=== PATIENT | female | born 1990 | race Two or more races ===

== ENCOUNTER 2017-09-05 06:09 | Inpatient (IN) | payer MEDICAID ==
[~2017-09-05] VITALS: Ht 172.7 cm; Wt 108.0 kg
[2017-09-05] VITALS (65 sets, daily range): BP systolic 73–132; BP diastolic 17–84; PULSE 71–120; RESP 18; TEMP 98.1–98.7
--- NOTE | 2017-09-05 08:08 | HHI.HP ---
HPI Chief Complaint post dates labor induction Date Seen: Sep 05, 2017 Time Seen: 07:45 Travel History International Travel<30 Days: No Contact w/Intl Traveler<30Days: No Known Affected Area: No History of Present Illness HPI 27 yo with reyna IUP at 40w2d by LMP c/w 1st trimester ultrasound admit for term labor induction, favorable, seen in office and scheduled last week by Dr. Diego. Pt c/o mild pelvic cramps today, nothing regular, no LOF or VB. Good FM. Pain 1/10, pressure in low pelvis. Weeks Gestation: 40 Para: 2 : 3 History Past Medical History Medical History: Denies Significant Hx Obstetric History Obstetric History 2 FT SVDs Past Surgical History Narrative Surgical denies Family History Family History: Negative Social History Alcohol Use: No Tobacco Use: No Substance Abuse: No Allergies-Medications (Allergen,Severity, Reaction): Coded Allergies: No Known Allergies (Unverified , 09/05/17) Home Meds No Active Prescriptions or Reported Meds Review of Systems General / Constitutional: Weight Gain, No: Fever, Chills, Other Eyes: No: Diploplia, Blurred Vision, Visual changes, Pain, Photophobia HENT: No: Headaches, Vertigo, Lightheadedness Cardiovascular: No: Irregular Rhythm, Chest Pain or Discomfort, Palpitations, Tachycardia, Syncope, Varicosities, Edema, Cyanosis Respiratory: No: Cough, Short of Breath, Other Gastrointestinal: No: Nausea, Vomiting, Diarrhea Genitourinary: Pelvic Pain (pressure), No: Decreased Urinary Output, Oliguria Musculoskeletal: No: Limited ROM, Weakness, Cramping, Edema, Pain Skin: No Rash, No Itching, No Dryness, No Lumps, No Change in Pigmentation, No Change in Nails, No Alopecia, No Lesions Neurologic: No: Weakness, Dizziness, Syncope, Focal Abnormalities, Coordination Problem, Headache, Slurred Speech, Seizures Psychiatric: No: Depression, Suicidal Ideations, Homicidal Ideation Endocrine: No: Heat Intolerance, Cold Intolerance, Polydipsia, Polyuria, Other Physical Exam Narrative GENERAL: Well-nourished, well-developed patient. SKIN: Warm and dry. HEAD: Normocephalic and atraumatic. EYES: No scleral icterus. No injection or drainage. ENT: No nasal drainage noted. Mucous membranes pink. Airway patent. NECK: Supple, trachea midline. No JVD. CARDIOVASCULAR: Regular rate and rhythm without murmurs, gallops, or rubs. RESPIRATORY: Breath sounds equal bilaterally. No accessory muscle use. BREASTS: Bilateral exam showed no masses , no retractions, no nipple discharge. ABDOMEN/GI: Abdomen soft, non-tender, bowel sounds present, no rebound, no guarding Gravid to [40] weeks size Fundal Height: [41] GENITOURINARY: External Genitalia: intact and normal in appearance BUS glands: [wnl] Cervix: [posterior] Dilatation: [2] Effacement: [th] Station: [3] Presentation: [vtx] Membranes: [intact] Uterine Contractions: [irreg, rare] FHT's: Category: [I] Baseline: [150s] Reactive: [y] Variability: [y] Decels: [n] EXTREMITIES: No cyanosis or edema. BACK: Nontender without obvious deformity. No CVA tenderness. NEUROLOGICAL: Awake and alert. Motor and sensory grossly within normal limits. Five out of 5 muscle strength in all muscle groups. Normal speech. Caprini VTE Risk Assessment Caprini VTE Risk Assessment: No/Low Risk (score <= 1) VTE Pharm Contraindication: High risk for bleeding Caprini Risk Assessment Model Point Value = 1 Point Value = 2 Point Value = 3 Point Value = 5 Age 41-60 Minor surgery BMI > 25 kg/m2 Swollen legs Varicose veins or History of unexplained or recurrent spontaneous Oral contraceptives or hormone replacement Sepsis (< 1 month) Serious lung disease, including pneumonia (< 1 month) Abnormal pulmonary function Acute myocardial infarction Congestive heart failure (< 1 month) History of inflammatory bowel disease Medical patient at bed rest Age 61-74 Arthroscopic surgery Major open surgery (> 45 min) Laparoscopic surgery (> 45 min) Malignancy Confined to bed (> 72 hours) Immobilizing plaster cast Central venous access Age >= 75 History of VTE Family history of VTE Factor V Leiden Prothrombin [id number] Lupus anticoagulant Anticardiolipin antibodies Elevated serum homocysteine Heparin-induced thrombocytopenia Other congenital or acquired thrombophilia Stroke (< 1 month) Elective arthroplasty Hip, pelvis, or leg fracture Acute spinal cord injury (< 1 month) Prophylaxis Regimen Total Risk Factor Score Risk Level Prophylaxis Regimen 0-1 Low Early ambulation 2 Moderate Order ONE of the following: *Sequential Compression Device (SCD) *Heparin 5000 units SQ BID 3-4 Higher Order ONE of the following medications: *Heparin 5000 units SQ TID *Enoxaparin/Lovenox 40 mg SQ daily (WT < 150 kg, CrCl > 30 mL/min) *Enoxaparin/Lovenox 30 mg SQ daily (WT < 150 kg, CrCl > 10-29 mL/min) *Enoxaparin/Lovenox 30 mg SQ BID (WT < 150 kg, CrCl > 30 mL/min) AND/OR *Sequential Compression Device (SCD) 5 or more Highest Order ONE of the following medications: *Heparin 5000 units SQ TID (Preferred with Epidurals) *Enoxaparin/Lovenox 40 mg SQ daily (WT < 150 kg, CrCl > 30 mL/min) *Enoxaparin/Lovenox 30 mg SQ daily (WT < 150 kg, CrCl > 10-29 mL/min) *Enoxaparin/Lovenox 30 mg SQ BID (WT < 150 kg, CrCl > 30 mL/min) AND *Sequential Compression Device (SCD) Data Data Orders Orders Admit To Inpatient (09/05/17 ) Code Status (09/05/17 08:00) Vital Signs (Adult) .Per protocol (09/05/17 08:00) Activity Oob Ad Alexa (09/05/17 08:00) Heart (09/05/17 08:00) Amnioinfusion (09/05/17 08:00) Urinary Catheter Management .ONCE (09/05/17 08:00) Lactated Ringer's 1000 Ml Inj (Lr 1000 M (09/05/17 08:00) Lactated Ringer's 1000 Ml Inj (Lr 1000 M (09/05/17 08:00) Sodium Chlorid 0.9% 500 Ml Inj (Ns 500 M (09/05/17 08:00) Sodium Chlor 0.9% 1000 Ml Inj (Ns 1000 M (09/05/17 08:20) Lidocaine 1% Inj (50 Ml) (Xylocaine 1% I (09/05/17 08:00) Citric Acid-Sodium Citrate Liq (Bicitra (09/05/17 08:00) Ondansetron Inj (Zofran Inj) (09/05/17 08:00) Fentanyl Inj (Fentanyl Inj) (09/05/17 08:00) Fentanyl Inj (Fentanyl Inj) (09/05/17 08:00) Penicillin G Potassium Inj (Pfizerpen-G (09/05/17 08:00) Penicillin G Potassium Inj (Pfizerpen-G (09/05/17 12:00) Complete Blood Count With Diff (09/05/17 08:00) Hold Clot (09/05/17 08:00) Abo/Rh Blood Type (09/05/17 08:00) Assessment/Plan Problem List: (1) Post term over 40 weeks ICD Codes: O48.0 - Post-term Status: Acute Assessment and Plan 27 yo with reyna IUP at 40w2d admit for post term induction 1) IOL: due to GBS+ multiparous status will start PCN ppx then start pitocin after 2h of PCN therapy; orders placed, consents signed 2) GBS + for PCN ppx 3) status: vtx, Cat I tracing Discharge Planning 2-3d PP Nicki Hussein MD Sep 05, 2017 08:08
[2017-09-05 08:26] LABS: AUTOMATED NEUTROPHIL # 7.3 TH/MM3 (1.8-7.7); BASOPHIL % 0.4 % (0.0-2.0); EOSINOPHIL # 0.1 TH/MM3 (0-0.4); EOSINOPHIL % 1.3 % (0.0-4.0); LYMPH % 21.3 % (9.0-44.0); LYMPHOCYTE # 2.2 TH/MM3 (1.0-4.8); MEAN CELL VOLUME 88.3 FL (80.0-100.0); MEAN CORPUSCULAR HEMOGLOBIN 29.3 PG (27.0-34.0); MEAN CORPUSCULAR HGB CONC 33.2 % (32.0-36.0); MONO % 5.6 % (0.0-8.0); MONOCYTE # 0.6 TH/MM3 (0-0.9); NEUT % 71.4 % (16.0-70.0); PLATELET COUNT 204 TH/MM3 (150-450); RED BLOOD COUNT 3.73 MIL/MM3 (4.00-5.30); RED CELL DISTRIBUTION WIDTH 14.4 % (11.6-17.2); WHITE BLOOD COUNT 10.3 TH/MM3 (4.0-11.0)
[2017-09-05] MEDS ORDERED: LIDOCAINE HCL 1% 50 ML VIAL I-DERMAL PRN (08:30)
[2017-09-05] MEDS ORDERED: OXYTOCIN 30 UNITS-500ML PREMIX 500 ML IV ONE (08:30)
[2017-09-05] MEDS ORDERED: LACTATED RINGER'S 1000 ML INJ 1,000 ML IV PRN (08:30)
[2017-09-05] MEDS ORDERED: LIDOCAINE HCL 1% 50 ML VIAL INFIL PRN (08:30)
[2017-09-05] MEDS ORDERED: PENICILLIN G POTASSIUM INJ 5,000,000 UNITS in SODIUM CHLORIDE 0.9% INJ 100 ML IV ONE (08:30)
[2017-09-05] MEDS ORDERED: SODIUM CHLORID 0.9% 500 ML INJ 500 ML IV PRN (08:30)
[2017-09-05] MEDS ORDERED: CITRIC ACID-SODIUM CITRATE LIQ 30 ML UDC PO SCH (08:30)
[2017-09-05] MEDS ORDERED: MINERAL OIL 10 ML VIAL TOPICAL PRN (08:30)
[2017-09-05] MEDS ORDERED: ONDANSETRON HCL 4 MG/2 ML VIAL IV PUSH PRN (08:30)
[2017-09-05 08:31] LABS: BILIRUBIN, URINE NEG (NEG); BLOOD, URINE NEG (NEG); GLUCOSE,URINE NEG (NEG); KETONE, URINE NEG (NEG); MUCUS URINE FEW /lpf (OCC); NITRITE,URINE NEG (NEG); PH, URINE 6.5 (5.0-8.5); SQUAMOUS EPITHELIAL CELL URINE 16 /hpf (0-5); TRANSITIONAL EPI CELLS, URINE <1 /hpf; URINE COLOR YELLOW (YELLW/STRAW); URINE LEUKOCYTE ESTERASE LARGE (NEG)
[2017-09-05] MEDS: LACTATED RINGER'S 1000 ML INJ 1,000 ML IV SCH ×3 (08:36→20:05)
[2017-09-05] MEDS ORDERED: SODIUM CHLOR 0.9% 1000 ML INJ 1,000 ML IV PRN (08:50)
[2017-09-05] MEDS ORDERED: OXYTOCIN 30 UNITS-500ML PREMIX 500 ML IV SCH ×2 (10:30→21:30)
[2017-09-05] MEDS: PENICILLIN G POTASSIUM INJ 2,500,000 UNITS in SODIUM CHLORIDE 0.9% INJ 100 ML IV SCH ×3 (12:24→20:04)
[2017-09-05] MEDS ORDERED: ePHEDrine/NS 25 MG/5 ML SYRINGE ONE (13:21)
[2017-09-05] MEDS ORDERED: fentaNYL 2MCG-BUPIV 0.125% INJ 100 ML ONE (13:21)
[2017-09-05] MEDS ORDERED: DO NOT ADMINISTER ANTICOAGULANTS PRN ×2 (15:00→19:00)
[2017-09-05] MEDS ORDERED: fentaNYL 2MCG-BUPIV 0.125% 100 ML EPIDURAL SCH ×2 (15:00→19:00)
[2017-09-05] MEDS ORDERED: NO SYSTEM NARCOTICS PRN ×2 (15:00→19:00)
[2017-09-05] MEDS ORDERED: ePHEDrine/NS 25 MG/5 ML SYRINGE IV PUSH PRN ×2 (15:15→19:00)
[2017-09-05] MEDS ORDERED: MEASLES, MUMPS, RUBELLA VACCINE 0.5 ML VIAL SQ ONE (16:00)
[2017-09-05] MEDS ORDERED: DIPHTH/TETANUS/ACEL PERTUSSIS (BOOSTER) 0.5 ML VIAL/PFS IM ONE (16:00)
--- NOTE | 2017-09-05 17:47 | PD.LABORPN ---
Subjective Subjective feeling comfortable with epidural in place; no LOF; contractions not really being felt, mild, 2/10 discomfort q3-5 min Objective Vital Signs Vital Signs Date Time Temp Pulse Resp B/P (MAP) Pulse Ox O2 Delivery O2 Flow Rate FiO2 09/05/17 17:30 18 09/05/17 17:16 81 103/62 (76) 09/05/17 17:10 18 09/05/17 17:01 109 113/63 (80) 09/05/17 17:00 18 09/05/17 16:46 120 113/64 (80) 09/05/17 16:45 18 09/05/17 16:31 86 104/61 (75) 09/05/17 16:21 18 09/05/17 16:15 82 18 104/79 (87) 09/05/17 16:00 18 09/05/17 16:00 78 112/64 (80) 09/05/17 15:45 73 110/59 (76) 09/05/17 15:45 18 09/05/17 15:30 71 113/67 (82) 09/05/17 15:26 18 09/05/17 15:15 81 94/40 (58) 09/05/17 15:15 18 09/05/17 15:00 87 18 86/38 (54) 09/05/17 14:45 101 78/53 (61) 09/05/17 14:25 93 09/05/17 14:20 80 09/05/17 14:15 80 09/05/17 14:15 99 111/61 (78) 09/05/17 14:10 100 09/05/17 14:05 81 09/05/17 14:01 88 101/39 (59) 09/05/17 14:00 102 09/05/17 13:56 98.5 09/05/17 13:56 81 111/58 (75) 09/05/17 13:55 93 09/05/17 13:51 87 119/77 (91) 09/05/17 13:50 93 09/05/17 13:46 85 18 125/79 (94) 09/05/17 13:45 76 18 09/05/17 13:40 88 124/84 (97) 09/05/17 13:40 87 09/05/17 13:35 83 09/05/17 12:22 96 18 108/63 (78) 09/05/17 11:46 98.1 18 09/05/17 11:46 84 132/69 (90) 09/05/17 10:40 18 09/05/17 10:39 91 105/55 (72) Objective Pelvic Exam: Cervix: [mid] Dilatation: [4-5] Effacement: [50] Station: [-2] Presentation: [vtx] Membranes: AROM'd clear this check; copious fluid Uterine Contractions: [IUPC placed, difficult to monitor; q3-5 min] FHT's: Category: [I] Baseline: [140s] Reactive: [y] Variability: [y] Decels: [rare variables with good recovery and good BTBV] Weeks Gestation: 40 Artificial rupture of membrane: Yes Assessment/Plan Problem List: (1) Post term over 40 weeks ICD Codes: O48.0 - Post-term Status: Acute Assessment and Plan 27 yo with IUP at 40w2d admit for post term labor induction 1) IOL: on pitocin, AROM'd clear this check, slow progression but proven pelvis with x 2; anticipate 2) GBS + on PCN since admission 3) status: vertex, male, Cat I tracing Nicki Hussein MD Sep 05, 2017 17:47
--- NOTE | 2017-09-05 21:27 | PD.OB.DELI ---
Weeks gestation: 40 Pt started active labor?: Yes Artificial rupture of membrane: Yes Anesthesia: Epidural Episiotomy: None Vaginal Delivery: Normal Presentation: Occiput anterior Nuchal Cord: x1 (tight nuchal, clamped & cut at perineum) Delayed cord clamping (45 sec): No Infant: Male Delivery date: Sep 05, 2017 Delivery time: 21:16 One Minute : 8 Five Minute : 9 Weight: pending Placenta: Spontaneous delivery, Intact, 3 vessel cord Laceration: No lacerations Estimated blood loss: 100 mL Additional Information healthy male infant delivered over intact perineum Nicki Hussein MD Sep 05, 2017 21:27
[2017-09-05] MEDS ORDERED: DOCUSATE SODIUM 50 MG/SENNA 8.6 MG TAB PO PRN (21:30)
[2017-09-05] MEDS ORDERED: ONDANSETRON ODT 4 MG TAB PO PRN (21:30)
[2017-09-05] MEDS ORDERED: WITCH HAZEL 50%/GLYCERIN 12.5% 40 PAD JAR TOPICAL PRN (21:30)
[2017-09-05] MEDS ORDERED: ACETAMINOPHEN 325 MG TAB PO PRN (21:30)
[2017-09-05] MEDS ORDERED: BENZOCAINE 20% TOPICAL SPRAY 60 ML CAN TOPICAL PRN (21:30)
[2017-09-05] MEDS: SODIUM CHLORIDE 0.9% FLUSH 10 ML FLUSH IV FLUSH SCH (21:30)
[2017-09-05] MEDS ORDERED: SODIUM CHLORIDE 0.9% FLUSH 10 ML FLUSH IV FLUSH PRN (21:30)
[2017-09-05] MEDS ORDERED: ZOLPIDEM TARTRATE 5 MG TAB PO PRN (21:30)
[2017-09-05] MEDS ORDERED: ALUMINUM/MAGNESIUM/SIMETH 30 ML CUP PO PRN (21:30)
[2017-09-06 00:30] VITALS: BP 119/71; PULSE 91; RESP 20; TEMP 99.6
[2017-09-06] MEDS: IBUPROFEN 800 MG TAB PO PRN ×2 (05:39→16:13)
[2017-09-06 08:00] VITALS: BP 104/68; PULSE 76; RESP 20; TEMP 97.9
--- NOTE | 2017-09-06 09:33 | HHI.OB ---
Subjective Post Day: 1 Remarks PPD#1; doing well, transitioning Objective Vitals/I&O Vital Signs Date Time Temp Pulse Resp B/P (MAP) Pulse Ox O2 Delivery O2 Flow Rate FiO2 09/06/17 08:00 97.9 76 20 104/68 (80) 09/06/17 00:30 99.6 91 20 119/71 (87) 09/05/17 23:03 18 09/05/17 23:00 74 122/60 (80) 09/05/17 22:45 82 108/61 (77) 09/05/17 22:40 18 09/05/17 22:30 89 107/70 (82) 09/05/17 22:21 18 09/05/17 22:20 75 108/69 (82) 09/05/17 22:17 84 73/17 (35) 09/05/17 22:01 18 09/05/17 22:01 81 122/69 (86) 09/05/17 21:50 98.7 18 09/05/17 21:45 88 122/69 (86) 09/05/17 21:40 18 09/05/17 21:30 87 111/55 (73) 09/05/17 21:25 76 18 106/77 (87) 09/05/17 21:00 83 119/64 (82) 09/05/17 20:45 98.5 18 09/05/17 20:31 84 104/54 (71) 09/05/17 20:05 18 09/05/17 20:00 87 102/57 (72) 09/05/17 19:31 92 112/56 (74) 09/05/17 19:15 98.5 18 09/05/17 19:01 84 107/71 (83) 09/05/17 18:45 18 09/05/17 18:30 81 107/64 (78) 09/05/17 18:20 18 09/05/17 18:15 79 102/56 (71) 09/05/17 18:15 18 09/05/17 18:00 85 98/48 (65) 09/05/17 17:58 18 09/05/17 17:46 107 98/72 (81) 09/05/17 17:42 18 09/05/17 17:30 85 113/61 (78) 09/05/17 17:30 18 09/05/17 17:16 81 103/62 (76) 09/05/17 17:10 18 09/05/17 17:01 109 113/63 (80) 09/05/17 17:00 18 09/05/17 16:46 120 113/64 (80) 09/05/17 16:45 18 09/05/17 16:31 86 104/61 (75) 09/05/17 16:21 18 09/05/17 16:15 82 18 104/79 (87) 09/05/17 16:00 18 09/05/17 16:00 78 112/64 (80) 09/05/17 15:45 73 110/59 (76) 09/05/17 15:45 18 09/05/17 15:30 71 113/67 (82) 09/05/17 15:26 18 09/05/17 15:15 81 94/40 (58) 09/05/17 15:15 18 09/05/17 15:00 87 18 86/38 (54) 09/05/17 14:45 101 78/53 (61) 09/05/17 14:25 93 09/05/17 14:20 80 09/05/17 14:15 80 09/05/17 14:15 99 111/61 (78) 09/05/17 14:10 100 09/05/17 14:05 81 09/05/17 14:01 88 101/39 (59) 09/05/17 14:00 102 09/05/17 13:56 98.5 09/05/17 13:56 81 111/58 (75) 09/05/17 13:55 93 18 13:51 87 119/77 (91) 09/05/17 13:50 93 09/05/17 13:46 85 18 125/79 (94) 09/05/17 13:45 76 18 09/05/17 13:40 88 124/84 (97) 09/05/17 13:40 87 09/05/17 13:35 83 09/05/17 12:22 96 18 108/63 (78) 09/05/17 11:46 98.1 18 09/05/17 11:46 84 132/69 (90) 09/05/17 10:40 18 09/05/17 10:39 91 105/55 (72) Objective Remarks GENERAL: Well-nourished, well-developed patient. CARDIOVASCULAR: Regular rate and rhythm without murmurs, gallops, or rubs. RESPIRATORY: Breath sounds equal bilaterally. No accessory muscle use. ABDOMEN/GI: Abdomen soft, non-tender. Fundus: Firm, non-tender at umbilicus. GENITOURINARY: Light to moderate bleeding. EXTREMITIES: No cyanosis or edema, non-tender, without signs of DVT. Medications and IVs Current Medications Medications (Trade) Dose Ordered Sig/Lizy Route Start Time Stop Time Status Last Admin (NS Flush) 2 ml BID IV FLUSH 09/05/17 21:30 (NS Flush) 2 ml UNSCH PRN IV FLUSH 09/05/17 21:30 (Tylenol) 650 mg Q4H PRN PO 09/05/17 21:30 (Motrin) 800 mg Q8H PRN PO 09/05/17 21:30 09/06/17 05:39 (Americaine 20% Top Spr) 1 spray Q4H PRN TOPICAL 09/05/17 21:30 (Tucks Pads) 1 applic QID PRN TOPICAL 09/05/17 21:30 (Melodie-Colace) 2 tab Q12H PRN PO 09/05/17 21:30 (Ambien) 5 mg HS PRN PO 09/05/17 21:30 (Mag-Al Plus Susp Liq) 15 ml Q8H PRN PO 09/05/17 21:30 (Zofran Odt) 4 mg Q6H PRN PO 09/05/17 21:30 Assessment/Plan Problem List: (1) Post term over 40 weeks ICD Codes: O48.0 - Post-term Status: Acute Assessment and Plan 27 yo with ,healthy male Stable, Desires circ. for infant, will call office to make arrangement for payment, discharge for tomorrow Discharge Planning 2-3d PP Attending Attestation seen by Contreras Rod MD Sep 06, 2017 09:33
--- NOTE | 2017-09-06 09:34 | HHI.DS ---
Admission Date Sep 05, 2017 at 06:09 Admitting Diagnosis Diagnosis: Delivery Date: Sep 05, 2017 Vaginal Delivery: Normal : Male Brief History 27 yo with reyna IUP at 40w2d by LMP c/w 1st trimester ultrasound admit for term labor induction, favorable, seen in office and scheduled last week by Dr. Diego. Pt c/o mild pelvic cramps today, nothing regular, no LOF or VB. Good FM. Pain 1/10, pressure in low pelvis. Pt Condition on Discharge: Good Discharge Disposition: Discharge Home Discharge Instructions Diet Instructions: As Tolerated, No Restrictions Activities You Can Perform: Shower Only-No Bath, Pelvic Rest Activities to Avoid: Driving for 24 hrs, Prolonged Standing, Strenuous Activity , Sexual Activity Contreras Thompson MD Sep 06, 2017 09:34
[2017-09-06 20:00] VITALS: BP 112/71; PULSE 78; RESP 18; TEMP 97.6
[2017-09-06] MEDS: SODIUM CHLORIDE 0.9% FLUSH 10 ML FLUSH IV FLUSH SCH (21:00)
[2017-09-07] MEDS: IBUPROFEN 800 MG TAB PO PRN (07:26)
--- NOTE | 2017-09-07 07:55 | HHI.OB ---
Subjective Post Day: 2 Remarks doing well, VB < menses, pain controlled, ready for d/c home Objective Vitals/I&O Vital Signs Date Time Temp Pulse Resp B/P (MAP) Pulse Ox O2 Delivery O2 Flow Rate FiO2 09/06/17 20:00 97.6 78 18 112/71 (85) 09/06/17 08:00 97.9 76 20 104/68 (80) Objective Remarks GENERAL: Well-nourished, well-developed patient. CARDIOVASCULAR: Regular rate and rhythm without murmurs, gallops, or rubs. RESPIRATORY: Breath sounds equal bilaterally. No accessory muscle use. ABDOMEN/GI: Abdomen soft, non-tender. Fundus: Firm, non-tender at umbilicus. GENITOURINARY: Light to moderate bleeding. EXTREMITIES: No cyanosis or edema, non-tender, without signs of DVT. Medications and IVs Current Medications Medications (Trade) Dose Ordered Sig/Lizy Route Start Time Stop Time Status Last Admin (NS Flush) 2 ml BID IV FLUSH 09/05/17 21:30 (NS Flush) 2 ml UNSCH PRN IV FLUSH 09/05/17 21:30 (Tylenol) 650 mg Q4H PRN PO 09/05/17 21:30 (Motrin) 800 mg Q8H PRN PO 09/05/17 21:30 09/07/17 07:26 (Americaine 20% Top Spr) 1 spray Q4H PRN TOPICAL 09/05/17 21:30 (Tucks Pads) 1 applic QID PRN TOPICAL 09/05/17 21:30 (Melodie-Colace) 2 tab Q12H PRN PO 09/05/17 21:30 (Ambien) 5 mg HS PRN PO 09/05/17 21:30 (Mag-Al Plus Susp Liq) 15 ml Q8H PRN PO 09/05/17 21:30 (Zofran Odt) 4 mg Q6H PRN PO 09/05/17 21:30 Assessment/Plan Problem List: (1) Post term over 40 weeks ICD Codes: O48.0 - Post-term Status: Acute Assessment and Plan 27 yo s/p ,healthy male 1. PPD #2: meeting post milestones, d/c home today. Desires circ. for infant, will call office to make arrangement payment. Mike Jiang MD Sep 07, 2017 07:55
[2017-09-07 08:00] VITALS: BP 108/64; PULSE 72; RESP 20; TEMP 97.9
== END 2017-09-07 16:11 | disposition home or self-care (01) | DRG 775 ==
LOC: H2EB 06:09 → H1EA 23:43
PROVIDERS: ADMIT Obstetrics & Gynecology; ATTEND Obstetrics & Gynecology
PROC: 10E0XZZ Delivery of Products of Conception, External Approach (ICD-10-PCS; principal; 2017-09-05)
PROC: 3E033VJ Introduction of Other Hormone into Peripheral Vein, Percutaneous Approach (ICD-10-PCS; 2017-09-05)
PROC: 10907ZC Drainage of Amniotic Fluid, Therapeutic from Products of Conception, Via Natural or Artificial Opening (ICD-10-PCS; 2017-09-05)
DX: O48.0 Post-term pregnancy (principal); O99.824 Streptococcus B carrier state complicating childbirth; O69.81X0 Labor and delivery complicated by cord around neck, without compression, not applicable or unspecified; Z37.0 Single live birth; Z3A.40 40 weeks gestation of pregnancy
CPT/HCPCS: 59025; 80307; 81001; 85025; 86900; 86901; J2540; J2590; J7120